=== PATIENT | male | born 1955 ===

== ENCOUNTER 2024-12-06 10:05 | Inpatient (IN) | payer OTHER, SELFPAY ==
[2024-11-28 08:51] LABS: Hematocrit 46.2 % (39.0-52.0); Hemoglobin 15.2 g/dL (13.0-18.0); Mean Corp Hgb Conc. 32.9 g/dL (33.0-37.0); Mean Corpuscular Volume 91.5 fL (80.0-94.0); Platelet Count 186 10^3/uL (130-400); Red Cell Dist. Width 13.0 % (11.5-14.5)
[2024-11-28 08:58] LABS: INR 1.01; PT 13.6 Sec (11.4-14.6)
[2024-11-28 08:59] LABS: APTT 28.2 Sec (23.4-35.0)
[2024-11-28 09:13] LABS: ALT (SGPT) 31 U/L (0-50); AST (SGOT) 29 U/L (17-59); Albumin 4.3 g/dl (3.5-5.0); Alkaline Phosphatase 75 U/L (38-126); Blood Urea Nitrogen 22 mg/dl (9-20); Calcium 9.8 mg/dl (8.4-10.2); Carbon Dioxide 30 mmol/L (22-30); Chloride 104 mmol/L (98-107); Glucose 107 mg/dl (70-99); Potassium 5.0 mmol/L (3.5-5.1); Sodium 138 mmol/L (135-145); Total Protein 7.2 g/dl (6.3-8.2); eGFR > 60.00
[2024-11-28 14:21] VITALS: BMI 24.2
--- NOTE | 2024-11-29 10:58 | PTCARENOTE ---
Abnormal WBC 18.8 collected 11/28/24 reported to Anna at Dr King's office.
[2024-12-06] VITALS (16 sets, daily range): BP systolic 107–165; BP diastolic 67–90; BMI 24.2
[2024-12-06] MEDS: TYLENOL 1000 MG PO (10:18)
[2024-12-06] MEDS: NORMOSOL-R/PLASMALYTE-A 1000 IV (10:19)
[2024-12-06] MEDS: NEURONTIN 300 MG PO ×3 (10:19→22:01)
[2024-12-06] MEDS: HEPARIN 5000 UNITS SC ×2 (10:19→19:45)
[2024-12-06] MEDS: DILAUDID 0.5 MG IV ×5 (13:59→22:03)
--- NOTE | 2024-12-06 14:10 | W.IMMPOSTOP ---
Surgical Immed Post Op Note
-
Date of Operation: December 06, 2024
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
Postoperative Diagnosis: Same
Surgeon: Benny King M.D.
Operation: Minimally invasive wedge resection of left lower lobe lung cancer � [id number] Sampling (SP) - [id number]
Anesthesia: GET
Estimated Blood Loss: 50 cc
Drains: Chest tube in the left thorax
Specimen: Left lower lobe lung cancer, additional staple margin, and mediastinal lymph nodes
Complications: None
Procedure:
The patient was taken to the operating room and placed in the usual supine position. After an adequate double-lumen endotracheal tube was placed, the patient was positioned in the right decubitus position with the left chest up. The left chest was
prepped and draped in the usual sterile fashion. At this time, a 6 cm mid-axillary incision was made with a #10 blade, and this was taken through the skin into the subcutaneous tissue. The serratus anterior muscle overlying the 5th intercostal space
was identified and split along the course of the muscle fibers. The intercostal muscle of the fifth intercostal space was divided, and the left chest was entered. The left chest was explored. The tumor in the posterior aspect of the left lower lobe
was identified.
A wedge resection was performed, and the tumor was removed and sent to the pathology department, which showed findings consistent with non-small cell lung cancer involving the staple line. An additional margin was taken by removing the stable. Due
to his poor lung function, completion lobectomy or further margins were not taken. The staple line was marked with large sebastien for potential postoperative radiotherapy.
At this time, mediastinal lymph node dissection was performed. The lymph nodes from stations 4, 5, 6, and 10 were taken and sent to pathology for permanent section. Hemostasis was obtained. A 28 [place] chest tube was placed through the anterior
thoracostomy incision and anchored to the skin using a #2 nylon suture. The ribs were re-approximated with 1 Vicryl in the transcostal fascia. The serratus anterior muscle was also re-approximated with 1 Vicryl in a running fashion. The fascia was
approximated with 1 Vicryl in a running fashion. The subcutaneous tissue was re-approximated with 3-0 Vicryl in a running fashion. The skin was approximated with 4-0 Monocryl in a running subcuticular fashion. Steri-strips and a sterile dressing
were placed. The chest tube was connected to the Pleurovac. The patient was placed back in the supine position and extubated without any problems. The final needle, sponge, and instrument counts were correct. The patient was transferred to the
recovery room.
[2024-12-06] MEDS: DILAUDID 0.25 MG IV (16:44)
--- NOTE | 2024-12-06 17:45 | PTCARENOTE ---
Pt received from PACU via bed. Transport was w/o incident. Pt is AAOx3, HRR, Chest tube intact to left chest/flank area. CT to water seal, no suction per orders. No drainage noted yet at this time. Dressing intact to chest wall intact. VSS, Pt is
afebrile. Pulse ox is 96% on 2Lvia nc. Pt instructed on plan of care. Pt verbalized understanding of instructions. Call selby is within reach.
[2024-12-06] MEDS: D5/0.9% SODIUM CHLORIDE 1000 IV (17:50)
[2024-12-06] MEDS: SYMBICORT 160/4.5 MCG INHALER 2 PUFF INH (19:39)
[2024-12-06] MEDS: COLACE PO (19:49)
[2024-12-06] MEDS: TORADOL 15 MG IV (19:50)
[2024-12-06] MEDS: COREG 25 MG PO (19:50)
[2024-12-06] MEDS: ROXICODONE 5 MG PO (19:54)
[2024-12-06] MEDS: ANCEF 10 IV (19:55)
[2024-12-06] MEDS: LIPITOR 80 MG PO (22:01)
[2024-12-07] VITALS (7 sets, daily range): BP systolic 115–157; BP diastolic 25–80; PULSE 71; O2SAT 91–95
[2024-12-07] MEDS: DILAUDID 0.5 MG IV ×2 (01:17→04:57)
[2024-12-07] MEDS: ANCEF 10 IV ×2 (01:18→09:49)
[2024-12-07] MEDS: TORADOL 15 MG IV ×4 (01:18→20:15)
[2024-12-07 06:50] LABS: Hematocrit 44.0 % (39.0-52.0); Hemoglobin 14.9 g/dL (13.0-18.0); Mean Corp Hgb Conc. 33.9 g/dL (33.0-37.0); Mean Corpuscular Volume 89.6 fL (80.0-94.0); Platelet Count 181 10^3/uL (130-400); Red Cell Dist. Width 12.7 % (11.5-14.5)
[2024-12-07 07:10] LABS: ALT (SGPT) 22 U/L (0-50); AST (SGOT) 41 U/L (17-59); Albumin 3.7 g/dl (3.5-5.0); Alkaline Phosphatase 68 U/L (38-126); Blood Urea Nitrogen 29 mg/dl (9-20); Calcium 8.3 mg/dl (8.4-10.2); Carbon Dioxide 26 mmol/L (22-30); Chloride 103 mmol/L (98-107); Estimated Creatinine Clearance 87 ml/min; Glucose 136 mg/dl (70-99); Potassium 4.2 mmol/L (3.5-5.1); Sodium 135 mmol/L (135-145); Total Protein 6.3 g/dl (6.3-8.2); eGFR > 60.00
[2024-12-07] MEDS: SYMBICORT 160/4.5 MCG INHALER 2 PUFF INH ×2 (07:12→19:30)
[2024-12-07] MEDS: SPIRIVA RESPIMAT 2.5 MCG 2 PUFF INH (07:13)
[2024-12-07] MEDS: DIOVAN 320 MG PO (08:04)
[2024-12-07] MEDS: COREG 25 MG PO ×2 (08:04→20:15)
[2024-12-07] MEDS: NEURONTIN 300 MG PO ×3 (08:04→21:45)
[2024-12-07] MEDS: HEPARIN 5000 UNITS SC (08:05)
[2024-12-07] MEDS: ORETIC 25 MG PO (08:05)
[2024-12-07] MEDS: D5/0.9% SODIUM CHLORIDE 1000 IV (08:09)
[2024-12-07] MEDS: COLACE PO (08:10)
[2024-12-07] MEDS: ROXICODONE 5 MG PO ×3 (09:59→21:55)
--- NOTE | 2024-12-07 10:29 | CM ---
Reviewed the chart notes and spoke with the patient at the bedside. The patient resides with his spouse in a one story home with four steps to enter. The patient has had [facility] in past, but no SNF. Patient reports no DME. The patient
confirmed his pharmacy of choice is [facility]. CM continues to be available to patient/family and is monitoring medical plan for needs at discharge.
Plan: Discharge to home when medically stable. No needs anticipated at this time.
--- NOTE | 2024-12-07 10:51 | W.PN.GENERIC ---
Assessment / Plan
-
S/p minimally invasive resection of the LLL lung cancer and mediastinal lymph node dissection POD #1
Doing well
Chest tube pulled
Elevated WBC is due to his know leukocytosis with lymphocyte predominant lymphome
Will check CXR at 2 pm
DC alan. IV meds changed to PO
If CXR ok and his pain is well controlled on po med, possible dc home later today or tomorrow
Await path
Physician Progress Note
Subjective
c/o incisional pain but tolerable. No SOB
Objective
Vital Signs
Temp Pulse Resp BP Pulse Ox
97.7 F 62 16 157/80 95
12/07/24 07:05 12/07/24 07:18 12/07/24 07:18 12/07/24 07:05 12/07/24 07:18
Lab Results
12/07/24 05:36
12/07/24 05:36
Lungs - CTA x 2
Chest tube without AL
CXR - stable
--- NOTE | 2024-12-07 14:25 | PTCARENOTE ---
At 11:45 placed ABD's over bloody dressing site where Dr. King had removed chest tube; @13:10 had to remove saturated previous ABD and reapply new one; @14:00 removed saturated bloody ABDs again; patient's gown and padding on bed also needed to be
removed each time; Dr. King was notified and commented 'it is common that pts pour bloody fluid after pulling the chest tube. When the chest tube is pulled out, now there is more room in the chest for his lung to expand, which pushes old blood out of
the old chest tube site, continue to change the dressing.' Will continue to monitor and change dressing as needed.
[2024-12-07] MEDS: COLACE 100 MG PO (17:19)
[2024-12-07] MEDS: LIPITOR 80 MG PO (21:45)
[2024-12-08] MEDS: TORADOL 15 MG IV (01:08)
[2024-12-08 06:00] VITALS: BMI 25.5
[2024-12-08 07:30] VITALS: BP 148/76
[2024-12-08] MEDS: SYMBICORT 160/4.5 MCG INHALER 2 PUFF INH (07:49)
[2024-12-08] MEDS: SPIRIVA RESPIMAT 2.5 MCG 2 PUFF INH (07:49)
[2024-12-08] MEDS: DIOVAN 320 MG PO (08:09)
[2024-12-08] MEDS: ROXICODONE 5 MG PO (08:12)
[2024-12-08] MEDS: NEURONTIN 300 MG PO (08:13)
[2024-12-08] MEDS: COREG 25 MG PO (08:13)
[2024-12-08] MEDS: COLACE 100 MG PO (08:13)
[2024-12-08] MEDS: ORETIC 25 MG PO (08:13)
[2024-12-08] MEDS: DILAUDID 2 MG PO (10:52)
--- NOTE | 2024-12-08 11:23 | PN.CDI ---
CDI
- -
CDI:
Physician Documentation Request
Admit Date: 12/06/24 10:05
Dear Doctor Fernando,
Clinical Indicators:
Patient admitted with Left Lower Lobe Lung Cancer; s/p Minimally invasive wedge resection 12/06/24.
11/18/2024 Echocardiogram Report: '...Estimated EF is 55-60 %...Grade 1 diastolic dysfunction.'
12/06 H & P, PMH includes CHF
Please provide further specificity regarding the most likely type and acuity of CHF you are evaluating, treating or monitoring.
Chronic diastolic heart failure
Other, please specify
Use of terms such as suspected, likely, concern for, or probable (associated with a specific diagnosis that is being evaluated, monitored, or treated as if it exists) are acceptable and can be coded in the inpatient setting, when documented at the
time of discharge.
Thank you,
FRANCISCO Jung RN
CDI Specialist
available via tiger text
Please use your independent medical judgment in providing your response.
--- NOTE | 2024-12-08 11:53 | W.DS.TRANS ---
DC Summary - Storage Engineer
-
Discharge Instructions:
Sleep Apnea Risk Low
Discharge Diagnosis/Procedures lung cancer
Diet No restrictions
Activity No strenuous activity,As tolerated
Driving Restrictions not while taking narcotics for pain
Bathing Restrictions OK to Shower
Instructions:
Stand-Alone Forms:
Changes to Home Medications: Yes
Discharge Medications:
DC Medications w/original date entered in [facility]
albuterol sulfate 2.5 mg/3 mL (0.083 %) solution for nebulization 2.5 mg inhalation QID PRN wheeze 11/30/24
albuterol sulfate 90 mcg/actuation aerosol inhaler 2 puff inhalation Q6H PRN wheeze 11/30/24
aspirin 81 mg tablet 81 mg PO DAILY Blood Clot Prevention/Tx 11/30/24
atorvastatin 80 mg tablet 80 mg PO HS High Cholesterol 11/30/24
carvedilol 25 mg tablet (Coreg) 25 mg PO BID Blood Pressure 11/30/24
clopidogrel 75 mg tablet (Plavix) 75 mg PO DAILY Blood Clot Prevention/Tx 11/30/24
fluticasone fur. 200 mcg-umeclid 62.5 mcg-vilant 25 mcg inhalat.powder (Trelegy Ellipta) 1 inh inhalation DAILY Lung/Breathing Issues 11/30/24
gabapentin 300 mg capsule 300 mg PO TID 11/30/24
valsartan 320 mg-hydrochlorothiazide 25 mg tablet 1 tab PO DAILY Blood Pressure 11/30/24
oxycodone 5 mg tablet 5 mg PO Q4H PRN pain #30 tabs 12/08/24
Home Medication Changes
Pending Results: No
[2024-12-08 12:08] VITALS: BP 148/73
--- NOTE | 2024-12-08 13:08 | CM ---
Met with patient at bedside; patient reported that his will provide transport home
Plan: Discharge to home; no services needed
== END 2024-12-08 13:15 | disposition home or self-care (01) | DRG 165 ==
LOC: 2 SOUTH 10:05
PROVIDERS: ADMITTING PHYSICIAN Surgery; FAMILY PHYSICIAN Internal Medicine
PROC: 0BBJ0ZZ Excision of Left Lower Lung Lobe, Open Approach (ICD-10-PCS; 2024-12-06)
PROC: 07B70ZX Excision of Thorax Lymphatic, Open Approach, Diagnostic (ICD-10-PCS; 2024-12-06)
DX: C34.32 Malignant neoplasm of lower lobe, left bronchus or lung (principal); D72.829 Elevated white blood cell count, unspecified; I11.0 Hypertensive heart disease with heart failure; I50.9 Heart failure, unspecified; I25.10 Atherosclerotic heart disease of native coronary artery without angina pectoris; I73.9 Peripheral vascular disease, unspecified; J43.9 Emphysema, unspecified; Z85.72 Personal history of non-Hodgkin lymphomas; Z87.891 Personal history of nicotine dependence; Z79.899 Other long term (current) drug therapy
CPT/HCPCS: 36415; 71045; 80053; 85027; 85610; 85730; 86850; 86900; 86901; 88305; 88307; 88313; 88331; 88341; 88342; 94640; 97162; 97166